=== PATIENT | male | born 1985 | race Caucasian/White ===

== ENCOUNTER 2017-08-16 22:45 | Emergency (ER) | payer BC ==
[~2017-08-16] VITALS: Ht 175.3 cm; Wt 86.8 kg
[2017-08-16 22:50] VITALS: BP 132/91
[2017-08-17] MEDS ORDERED: TAMIFLU75 MG PO (01:41)
== END 2017-08-17 01:53 | disposition home or self-care (01) ==
LOC: EME 22:45
PROVIDERS: Physician Assistant
DX: J10.1 Influenza due to other identified influenza virus with other respiratory manifestations (principal)
CPT/HCPCS: 71046; 87502; 87651 90; 99281; 99283